=== PATIENT | female | born 1945 | race Caucasian/White ===

== ENCOUNTER 2018-02-06 02:31 | Inpatient (IN) | payer OTHER, MEDICARE ==
[~2018-02-06] VITALS: Ht 165.1 cm; Wt 111.1 kg
[~2018-02-06 02:31] MED LIST: ATORVASTATIN CA20 M1 PO; FUROSEMIDE20 M1 PO; GABAPENTIN300 M2 PO; PREDNISONE5 M1 PO; PRILOSEC OTC20 M1 PO; TIZANIDINE HCL4 M1 PO; TRAMADOL HCL50 M1 PO; TRAZODONE HCL100 M1 PO
--- NOTE | 2018-02-06 12:23 | Admission Core Measures ---
Acute Coronary Syndrome (CM) ACS Core Measures Acute Coronary Syndrome Diagnosis No Congestive Heart Failure (NEW) CHF Core Measures Congestive Heart Failure Diagnosis No Cerebrovascular Accident (NEW) CVA Core Measures CVA/TIA Diagnosis No Venous Thromboembolism VTE Core Alyssa (View Protocol) VTE Risk Factors Surgery No Mechanical VTE Prophylaxis d/t N/A MechProphylax Ordered No VTE Pharm Prophylaxis d/t NA PharmProphylax ordered Problem List As ranked by this Provider includes Assessment & Plan 1. History of repair of hiatal hernia 2. S/P laparoscopic sleeve gastrectomy 3. Hiatal hernia 4. Morbid obesity 5. Polymyalgia rheumatica HOME MEDS Home Med List Atorvastatin Calcium 20 MG TABLET 1 TAB PO DAILY CHOLESTEROL (Reported) Furosemide 20 MG TABLET 1 TAB PO EOD EDEMA (Reported) Gabapentin 300 MG CAPSULE 1 CAP PO BID PAIN (Reported) Omeprazole Magnesium (Prilosec Otc) 20 MG TABLET.DR 1 TAB PO DAILY STOMACH IRRITATION (Reported) Prednisone 5 MG TABLET 7 MG PO DAILY POLYMYALGIA RHEUMATICA (Reported) Tizanidine HCl 4 MG TABLET 1 TAB PO QPM PAIN (Reported) Tramadol HCl 50 MG TABLET 1 TAB PO QPM PRN PAIN (Reported) Trazodone HCl 100 MG TABLET 1 TAB PO QPM SLEEP (Reported)
--- NOTE | 2018-02-06 12:27 | Surg Short-stay <48hrs Dis Sum ---
Visit Information Visit Dates Admission Date: 02/06/18 Discharge Date: 02/07/18 Surgical Short Stay DC Summary Admission Diagnosis: Morbid Obesity BMI 37, GERD, Hyperlipidemia, arthritis, Hiatal hernia Final Diagnosis: SAME ABOVE, S/P Surgery Date: 02/06/18 Name of Procedure: Laparoscopic Sleeve Gastrectomy, Laparoscopic Hiatal hernia repair Procedure(s): Surgery Date: 02/06/18 Name of Procedure: Laparoscopic Sleeve Gastrectomy, Laparoscopic Hiatal hernia repair Summary/Significant Findings: Electively scheduled laparoscopic sleeve gastrectomy, and hiatal hernia repair on 02/06/18 by for history of morbid obesity (BMI 37), GERD, Hyperlipidemia, arthritis, and hiatal hernia. Started on a stage 1 diet post- operatively. Stress dosed steroids done in the OR due to daily prednisone dose ( 7mg daily) for history of polymyalgia rheumatica. Upper gi study on POD#1 to rule out leak and obstruction. Pain control transitioned from iv to oral medication as able. Brayan teaching done prior to discharge home. Condition at Discharge: stable Discharge Disposition: home or self care Discharge instructions provided to patient/family: Yes Post discharge follow-up plan: one week follow up with Dr.Fridman stern teaching for continued home use Copies to: Lina VILLASENOR,Shellie Osman
--- NOTE | 2018-02-06 12:29 | Patient Discharge Instructions ---
Discharge Instructions General Discharge Information You were seen/treated for: Morbid Obesity BMI 37, GERD, Hyperlipidemia, arthritis, Hiatal hernia You had these procedures: Surgery Date: 02/06/18 Name of Procedure: Laparoscopic Sleeve Gastrectomy, Laparoscopic Hiatal hernia repair Watch for these problems: fever>101.3, increased pain, redness/swelling/drainage, dizziness, shortness of breath, chest pains No bath, but you may shower: Yes Other wound care: ok to remove outer dressings. leave white steri strips in place. ok to shower. keep incisions clean & dry. Diet Continue normal diet: No Recommended Diet: Bariatric Additional DIET Information: weekly bariatric stage diet advancement as tolerated, as directed Activity Full Activity/No Limits: No Activity Self Limited: Yes Pounds, do NOT lift more than: 10 Other activity limits: no heavy lifting. no strenuous activity. Additional ACTIVITY Info: walk frequently Acute Coronary Syndrome Inclusion Criteria At DC or during hospital stay patient has or had the following: ACS DIAGNOSIS No Discharge Core Measures Meds if any: Prescribed or Continued at Discharge Meds if any: NOT Prescribed or Continued at Discharge Congestive Heart Failure Inclusion Criteria At DC or during hospital stay patient has or had the following: CHF DIAGNOSIS No Discharge Core Measures Meds if any: Prescribed or Continued at Discharge Meds if any: NOT Prescribed or Continued at Discharge Cerebrovascular accident Inclusion Criteria At DC or during hospital stay patient has or had the following: CVA/TIA Diagnosis No Discharge Core Measures Meds if any: Prescribed or Continued at Discharge Meds if any: NOT Prescribed or Continued at Discharge Venous thromboembolism Inclusion Criteria VTE Diagnosis No VTE Type NONE VTE Confirmed by (Test) NONE Discharge Core Measures - Per Current guidelines, there needs to be overlap - treatment for the first 5 days of Warfarin therapy. - If discharged on Warfarin prior to 5 days of - overlap therapy, the patient will need to be - assessed for post discharge needs including - *Post discharge parental anticoagulation - *Warfarin and/or parental anticoagulation education - *Follow up date to check INR post discharge At least 5 days overlap therapy as Inpatient No Meds if any: Prescribed or Continued at Discharge Note: Overlap Therapy is Warfarin and Anticoagulant Meds if any: NOT Prescribed or Continued at Discharge
[2018-02-06] MEDS ORDERED: LOVENOX40 MG/0.1 SC (12:30)
[2018-02-06] MEDS ORDERED: HYCET 7.5 MG-3473 ML PO (12:30)
[2018-02-06 14:39] VITALS: BP 170/88
--- NOTE | 2018-02-06 14:47 | Operative Report ---
Operative/Inv Procedure Report Surgery Date: 02/06/18 Name of Procedure: Laparoscopic Sleeve Gastrectomy, Laparoscopic Hiatal hernia repair Pre-Operative Diagnosis: Morbid Obesity BMI 37, GERD, Hyperlipidemia, arthritis, Hiatal hernia Post-Operative Diagnosis: Same Estimated Blood Loss: less than 50ml Surgeon/Facsimile Operator: Carlton Vásquez DO Anesthesia: general endotracheal tube IV Fluids: 1100 cc Drains: None Specimens: Stomach Complications: None Condition: Stable Operative Indication: This is a 72-year-old female that presented to the office for workup for bariatric surgery. After appropriate workup was completed I discussed with the patient the band, the sleeve, and the gastric bypass. The patient chose to undergo a sleeve gastrectomy. All risks including but not limited to bleeding, infection, leak, stricture, injury to surrounding bowel/esophagus/stomach/liver/ spleen, long-term reflux, DVT/PE, and mortality of 11/999 patients were discussed in detail. The patient understood everything and decided to proceed. Operative/Procedure Note Note: The patient was brought to the operating room and placed on the operating room table in supine position. Venodyne stockings were placed and adequate general endotracheal anesthesia was obtained. The patient was prepped and draped in standard surgical fashion. Began the procedure by making a 2 cm transverse incision supraumbilically and slightly to the left of the midline. Then using a 12 mm clear Visiport and a 10 mm 0 laparoscope, the abdominal cavity was accessed. Great care was taken to go through the anterior rectus sheath, the posterior rectus sheath, and through the peritoneum. Once we entered the peritoneum the abdominal cavity was insufflated to 15 mmHg. Upon initial examination no obvious gross pathology was seen. Accessory trocars were placed, 5 mm in the epigastrium for the Pedro liver retractor. The retractor was inserted and the liver was retracted anteriorly exposing the hiatus, a moderate size hiatal hernia was seen. 5 mm ports were placed in the right and left upper quadrant, a 5 mm left lateral port, and a 15 mm right lateral port. Began the procedure by mobilizing the greater curvature of the stomach approximately 7 cm from the pylorus. Once the retrogastric space was reached the whole greater curvature was mobilized maintaining hemostasis using Harmonic scalpel. Full hiatal dissection was performed, a 5-6 cm hiatal hernia was seen. The left chester of the diaphragm was dissected away from the esophagus, reducing the hernia sac. We then brought our attention to the right chester, the pars flaccida was opened until the right chester was clearly visualized. Following this the right chester was dissected away from the esophagus as well and the esophagus was circumferentially dissected out of the chest. At the completion of dissection the esophagus was in the abdominal cavity for about 2-3 cm. The esophagus was retracted anteriorly and the hiatus was closed using 2-0 Tycron suture. At the completion of the closure there was ample room for the esophagus and the hiatus was adequately closed. Posterior adhesions were taken down using Harmonic scalpel as well. Once the stomach was adequately mobilized a 38 [place] bougie was inserted and placed along the lesser curvature of the stomach. Once the bougie was in the appropriate position we began creating our sleeve, two 60 mm black staple loads with seamguard followed by three 60 mm purple staple loads with seamguard as well. Great care was taken to leave ample room at the incisura angularis, to prevent any twisting or kinking of the sleeve, to stay lateral to the esophagogastric fat pad, and to do a full fundal excision. At the completion of the staple line the staple line was examined, it appeared intact and no obvious bleeding was noted. The bougie was removed, the sleeve was lying nicely without any twisting or kinking. The resected stomach was removed through the right lateral port site. The port and the left upper quadrant were irrigated until clear. All ports were removed under direct visualization no obvious bleeding was noted. The 15 mm port site fascia was closed using 0 Vicryl suture. The skin was closed using 4-0 Monocryl. Steri- Strips and dressings were placed. The patient was successfully extubated and transferred to the recovery room in stable condition. The patient tolerated the procedure well with no complications. Findings: 5-6 cm hiatal hernia, 38 Fr bougie CC: Dalia VILLASENOR,Kristie
--- NOTE | 2018-02-06 15:32 | PN- Bariatrics ---
Subjective Subjective: Postop check: Patient with complaints of some pressure around the neck area and in her back. She has mild epigastric abdominal discomfort, no nausea no vomiting. No difficulty swallowing. No shortness of breath Objective Vital Signs and I&Os Vital Signs Date Time Temp Pulse Resp B/P B/P Pulse O2 O2 Flow FiO2 Mean Ox Delivery Rate 02/06 1443 94 Nasal 3.0L Cannula 02/06 1439 97.6 64 20 170/88 94 Nasal 3.0L Cannula Intake & Output 02/06 0802/06 0000 02/05 1600 02/05 0000 Intake Total Output Total Balance Patient 230 lb Weight Weight Reported by Patient Measurement Method Physical Exam: Well-developed well-nourished no apparent distress. HEENT: Atraumatic, extraocular motion intact Neck: Supple, no lymphadenopathy Subcutaneous air noted about the neck and clavicle region, left greater than right Respiratory: No respiratory distress, lungs clear Heart: Regular rate and rhythm no murmur Abdomen: Obese, minimal distention, incision sites clean dry and intact, mild tenderness in the mid abdominal and epigastric region Extremities: Trace bilateral lower extremity edema, no calf pain Neuro: Alert and oriented x3 Psych: Mood affect normal, normal memory normal judgment. Skin: Warm and dry, no rash on exposed skin Assessment/Plan Assessment/Plan Postop day #0 status post Laparoscopic Sleeve Gastrectomy, Laparoscopic Hiatal hernia repair Secondary to Morbid Obesity BMI 37, GERD, Hiatal hernia Stage I diet, nothing by mouth after midnight for possible upper GI study in the morning IV fluids Perioperative antibiotics Antiemetics as needed GI prophylaxis with protonix DVT prophylaxis: heparin for now, will need Lovenox as outpatient Follow-up a.m. labs Decadron IV for nausea Prednisone for history of PMR Out of bed Incentive spirometer Dressing changes as needed Monitor subcutaneous air, likely will resolve on its own, discussed with patient monitor BP, eleavted post op. Core Measures Venous Thromboembolism VTE Risk Factors Surgery No Mechanical VTE Prophylaxis d/t N/A MechProphylax Ordered No VTE Pharm Prophylaxis d/t NA PharmProphylax ordered
[2018-02-06 20:00] VITALS: BP 160/74
[2018-02-06 22:00] VITALS: BP 168/82
[2018-02-07 06:00] VITALS: BP 130/80
--- NOTE | 2018-02-07 07:57 | PN- Bariatrics ---
Subjective Subjective: Patient reports heartburn, denies any nausea or vomiting. She tolerated 8 cups of the stage 1 diet yesterday. She reports hoarseness this morning. She states her pain is well controlled. She reports voiding and passing a small amount of flatus. Offers no other complaints. Objective Vital Signs and I&Os Vital Signs Date Time Temp Pulse Resp B/P B/P Pulse O2 O2 Flow FiO2 Mean Ox Delivery Rate 02/07 600 98.3 56 16 130/80 97 02/07 0000 Room Air 02/06 2200 93 Nasal 1.0L Cannula 02/06 2200 98.2 68 18 168/82 92 Nasal 1.0L Cannula 02/06 2059 Nasal 2.0L Cannula 02/07 2000 93 Nasal 1.0L Cannula 02/07 2000 93 Nasal 1.0L Cannula 02/07 2000 98.2 65 18 160/74 92 Nasal 1.0L Cannula 02/07 1600 92 Nasal 1.0L Cannula 02/06 1600 92 Nasal 1.0L Cannula 02/06 1443 94 Nasal 3.0L Cannula 02/06 1439 97.6 64 20 170/88 94 Nasal 3.0L Cannula Intake & Output 02/07 0000 02/06 1600 02/06 0802/06 0000 02/05 1600 Intake Total 500 1105 395 Output Total 500 300 350 Balance 0 805 45 Intake, IV 500 985 275 Intake, Oral 120 120 Number 0 0 Bowel Movements Output, Urine 500 300 350 Patient 230 lb Weight Weight Reported by Patient Measurement Method Physical Exam: Gen - resting comfortably in nad Neck - no crepitus appreciated Cardiac - S1S2 noted, RRR Lungs - CTAB, no absent or adventitious breath sounds noted Abd - soft, obese, 6 dressings noted, hypoactive bs, nontender to palpation, no rebound or guarding noted Current Medications: Current Medications Sig/South Start time Last Medication Dose Route Stop Time Status Admin Acetaminophen 1,000 MG Q6H 02/06 1445 AC 02/07 N/A 1 UNIT IV 02/07 0859 0149 Cefazolin Sodium 2,000 MG IQ8 02/06 1800 CAN IV 02/07 0001 Cefazolin Sodium 2 GM Q8H 02/06 1800 DC 02/07 N/A 1 UNIT IV 02/07 0229 0138 Cefazolin Sodium 2,000 MG ONCE 02/06 0000 DC IV 02/06 2359 Dexamethasone 8 MG ONCE PRN 02/06 1445 AC IV PUSH Dextrose/Sodium 1,000 ML Q8H 02/06 1445 AC 02/07 Chloride IV 0140 Fentanyl Citrate 200 MCG .STK-MED ONE 02/06 0934 DC IM 02/06 0935 Gabapentin 300 MG BID 02/06 2200 AC 02/06 PO 2126 Heparin Sodium 5,000 UNIT Q8 02/06 2200 AC 02/07 (Porcine) SC 0631 Heparin Sodium 0 .STK-MED ONE 02/06 0913 DC (Porcine) .ROUTE Heparin Sodium 5,000 UNIT ONCE 02/06 0000 DC (Porcine) SC 02/06 2359 Hydrocodone Bitart/ 15 ML Q6P PRN 02/06 1445 AC Acetaminophen PO Hydrocortisone 100 MG .STK-MED ONE 02/06 0955 DC Sodium Succinate IM 02/06 0956 Midazolam HCl 2 MG .STK-MED ONE 02/06 0935 DC IM 02/06 0936 Morphine Sulfate 2 MG Q4-6 PRN PRN 02/06 1445 AC 02/07 IV 0639 Ondansetron HCl 4 MG Q6P PRN 02/06 1445 AC IV Pantoprazole Sodium 40 MG DAILY 02/07 1000 AC 02/07 IV 0727 Prednisone 5 MG DAILY 02/07 1000 AC PO Prednisone 2 MG DAILY 02/07 1000 AC PO Simethicone 40 MG Q6P PRN 02/06 1445 AC PO Tizanidine HCl 4 MG QPM 02/06 2200 AC 02/06 PO 2358 Results Last 48 Hours of Labs: Laboratory Tests 02/07 07 Chemistry Sodium Pending Potassium Pending Chloride Pending Carbon Dioxide Pending Anion Gap Pending BUN Pending Creatinine Pending BUN/Creatinine Ratio Pending Glucose Pending Magnesium Pending Hematology CBC w Diff Pending WBC Pending RBC Pending Hgb Pending Hct Pending MCV Pending MCH Pending MCHC Pending RDW Pending Plt Count Pending MPV Pending Assessment/Plan Assessment/Plan 72 F POD 1 s/p lap sleeve and hiatal hernia repair, subcutanous air appears resolved Cancel UGI Advance to stage 1 bariatric diet Cont IVF pending labs Pain regimen/antiemetics prn GI ppx - protonix DVT ppx - hsq, lovenox as outpt Cont prednisone for PMR Encourage IS, ambulation F/u labs Anticipate d/c within 24-48 hours Will d/w Dr. Vásquez Core Measures Venous Thromboembolism VTE Risk Factors Surgery No Mechanical VTE Prophylaxis d/t N/A MechProphylax Ordered No VTE Pharm Prophylaxis d/t NA PharmProphylax ordered
[2018-02-07 08:13] LABS: ABSOLUTE BASOPHIL COUNT 0 /CUMM (0.0-0.2); ABSOLUTE EOSINOPHIL COUNT 0 /CUMM (0.0-0.7); ABSOLUTE GRANULOCYTE CT 8.7 /CUMM (1.4-6.5); ABSOLUTE MONOCYTE COUNT 0.7 /CUMM (0.10-0.60); BASOPHIL % 0 % (0.0-2.0); EOSINOPHIL % 0 % (0-5); HEMATOCRIT 31.7 % (37-47); MEAN CORPUSCULAR HGB 27.3 PG (27.0-31.0); MEAN CORPUSCULAR HGB CONC 32.6 G/DL (33.0-37.0); MEAN CORPUSCULAR VOLUME 83.8 FL (81.0-99.0); MEAN PLATELET VOLUME 9.6 FL (7.4-10.4); PLATELET COUNT 214 /CUMM (130-400); RBC DISTRIBUTION WIDTH 17.2 % (11.5-14.5); RED BLOOD CELL CT 3.79 /CUMM (4.20-5.40); WHITE BLOOD CELL COUNT 10.3 /CUMM (4.8-10.8)
[2018-02-07 09:02] LABS: GRANULOCYTE % 84.1 % (42.2-75.2)
[2018-02-07 14:36] VITALS: BP 120/82
[2018-02-07] MEDS ORDERED: HYCET 7.5 MG-3473 ML PO (14:53)
== END 2018-02-07 16:45 | DRG 621 ==
LOC: SDA 02:31 → 2NB 02:31 → ENRESERV 13:39 → ENTRNSPT 13:57 → EDTRNSPTSTS 14:07 → 2NB 14:12 → CMPTRNSPT 14:14 → 2NB 14:36 → ENTRNSPT 02-07 16:01 → EDTRNSPTSTS 02-07 16:08 → CMPTRNSPT 02-07 16:30 → 2NB 02-07 16:45
PROVIDERS: Physician Assistant
PROC: 0DB64Z3 Excision of Stomach, Percutaneous Endoscopic Approach, Vertical (ICD-10-PCS; principal; 2018-02-06)
PROC: 0BQT4ZZ Repair Diaphragm, Percutaneous Endoscopic Approach (ICD-10-PCS; 2018-02-06)
PROC: 3E0T3BZ Introduction of Anesthetic Agent into Peripheral Nerves and Plexi, Percutaneous Approach (ICD-10-PCS; 2018-02-06)
DX: E66.01 Morbid (severe) obesity due to excess calories (principal); E78.5 Hyperlipidemia, unspecified; I10 Essential (primary) hypertension; Z68.38 Body mass index [BMI] 38.0-38.9, adult; M79.7 Fibromyalgia; M19.90 Unspecified osteoarthritis, unspecified site; Z85.3 Personal history of malignant neoplasm of breast; K21.9 Gastro-esophageal reflux disease without esophagitis; M35.3 Polymyalgia rheumatica; K44.9 Diaphragmatic hernia without obstruction or gangrene; Z79.52 Long term (current) use of systemic steroids; F32.9 Major depressive disorder, single episode, unspecified; Z98.1 Arthrodesis status; Z96.651 Presence of right artificial knee joint
CPT/HCPCS: 2NBSP; 36592; 82436; C9399; J0131; J0690; J1644; J1720; J7042; J7512